=== PATIENT | male | born 1940 | race Caucasian/White ===

== ENCOUNTER 2017-07-01 00:16 | Inpatient (IN) | payer MEDICARE ==
[2017-07-01] MEDS ORDERED: NITROGLYCERIN/D5W 50 MG/250 ML RTUINJ IV PRN (00:37)
[2017-07-01] MEDS ORDERED: FUROSEMIDE INJ/PF 20 MG/2 ML SDV IV ONE ×2 (00:37→10:00)
--- NOTE | 2017-07-01 00:38 | ER Document Report ---
ED General - General Stated Complaint: DIFFICULTY BREATHING Time Seen by Provider: 07/01/17 00:36 Notes: Patient is a 76-year-old male presents with complaint of difficulty breathing. He says he has limited difficulty breathing last night after drinking a few beers. For some and drinking a long time. He said it went away. Said also tonight he woke up with severe difficulty breathing. Was diaphoretic and sweating. He denies ever having any chest pain. When paramedics arrived he had rales throughout and was diaphoretic. They placed Nitropaste on him and place him on CPAP is already feeling much improved. He denies any recent infections or fevers. He is a former smoker. Denies any known history of coronary disease. Patient does not see a doctor and does not take medications. Past Medical History - Social History Smoking Status: Former Smoker Frequency of alcohol use: Occasional Drug Abuse: None Family History: Reviewed & Not Pertinent Review of Systems - Review of Systems Notes: My Normal Review Basic REVIEW OF SYSTEMS: CONSTITUTIONAL : Denies fever, chills, or sweats. Denies recent illness. EENT: Denies eye, ear, throat, or mouth pain or symptoms. Denies nasal or sinus congestion. CARDIOVASCULAR: Denies chest pain. RESPIRATORY: Difficulty breathing GASTROINTESTINAL: Denies abdominal pain. Denies nausea, vomiting, or diarrhea. Denies constipation. Last BM: MUSCULOSKELETAL: Denies neck or back pain or joint pain or swelling. SKIN: Denies rash or skin lesions. NEUROLOGICAL: Denies altered mental status or loss of consciousness. Denies headache. Denies weakness or paralysis or loss of use of either side. Denies problems with gait or speech. Denies sensory or motor loss. ALL OTHER SYSTEMS REVIEWED AND NEGATIVE. Physical Exam - Vital signs Vitals: Pulse Resp BP Pulse Ox 116 H 40 H 175/119 H 100 07/01/17 00:16 07/01/17 00:16 07/01/17 00:16 07/01/17 00:16 - Notes Notes: General Appearance: Well nourished, alert, cooperative, mild to moderate acute distress, no obvious discomfort. Vitals: reviewed, See vital signs table. Head: no swelling or tenderness to the head Eyes: PERRL, EOMI, Conjuctiva clear Mouth: No decreasd moisture Neck: Supple, no neck tenderness, No thyromegaly Lungs: No wheezing, scattered rales, No rhonci, No accessory muscle use, good air exchange bilaterally. Heart: Tachycardic rate, Regular rythm, No murmur, no rub Abdomen: Normal BS, soft, No rigidity, No abdominal tenderness, No guarding, no rebound, no abdominal masses, no organomegaly Extremities: strength 5/5 in all extremities, good pulses in all extremities, no swelling or tenderness in the extremities, no edema. Skin: warm, dry, appropriate color, no rash Neuro: speech clear, oriented x 3, normal affect, responds appropriately to questions. Course - Re-evaluation Re-evalutation: 07/01/17 05:37 Patient's breathing is much improved now that his blood pressure is improved. Suspect the he had flushed department edema could have had hypertensive urgency with which could cardiac strain which probably led to a slight troponin leak. His troponins have remained in the indeterminate range. He denies any chest pain ever. He looks and feels much improved. I have spoken with the hospitalist who agrees to admit the patient. Dictation of this chart was performed using voice recognition software; therefore, there may be some unintended grammatical errors. - Vital Signs Vital signs: Temp Pulse Resp BP Pulse Ox 98.7 F 116 H 31 H 147/94 H 100 07/01/17 00:45 07/01/17 00:16 07/01/17 04:31 07/01/17 04:31 07/01/17 04:31 - Laboratory Result Diagrams: 07/01/17 00:20 07/01/17 00:20 Laboratory results interpreted by me: 07/01/17 07/01/17 07/01/17 00:20 00:20 00:20 WBC 14.3 H RDW 14.2 H Absolute Neutrophils 10.5 H Sodium 146.1 H Glucose 135 H Direct Bilirubin 0.5 H Creatine Kinase 276 H CK-MB (CK-2) 5.79 H NT-Pro-B Natriuret Pep 1620 H - EKG Interpretation by Me Additional EKG results interpreted by me: 07/01/17 00:38 EKG is reviewed and interpreted by me. EKG shows sinus tachycardia with rate of 111 bpm. Patient does have a left bundle branch block. No concerning ST segment changes in lieu of the left bundle branch block. TN interval is within normal range. QRS duration QTc intervals are prolonged. I do not have an old EKG for comparison. Discharge - Discharge Clinical Impression: Hypertensive emergency, Flash pulmonary edema Condition: Stable Disposition: ADMITTED INPATIENT Admitting Provider: Hospitalist Unit Admitted: [facility]
[2017-07-01 00:48] LABS: ABSOLUTE BASOPHILS # (AUTO) 0.1 10^3/uL (0.0-0.2); ABSOLUTE EOSINOPHILS # (AUTO) 0.2 10^3/uL (0.0-0.6); ABSOLUTE LYMPHOCYTES (AUTO) 2.5 10^3/uL (0.5-4.7); ABSOLUTE MONOCYTES (AUTO) 0.9 10^3/uL (0.1-1.4); ABSOLUTE NEUT (AUTO) 10.5 10^3/uL (1.7-8.2); BASOPHILS % (AUTO) 0.8 % (0-2); EOSINOPHILS % (AUTO) 1.6 % (0-6); HEMATOCRIT 43.9 % (37.9-51.0); HEMOGLOBIN 14.7 g/dL (13.5-17.0); HGB HCT DIFFERENCE 0.2; LYMPHOCYTES % (AUTO) 17.8 % (13-45); MEAN CORPUSCULAR HEMOGLOBIN 29.6 pg (27.0-33.4); MEAN CORPUSCULAR HGB CONC 33.4 g/dL (32.0-36.0); MEAN CORPUSCULAR VOLUME 89 fl (80-97); MONOCYTES % (AUTO) 6.1 % (3-13); RED BLOOD COUNT 4.94 10^6/uL (4.35-5.55); RED CELL DISTRIBUTION WIDTH 14.2 % (11.5-14.0); SEGMENTED NEUTROPHILS % (AUTO) 73.7 % (42-78); WHITE BLOOD COUNT 14.3 10^3/uL (4.0-10.5)
[2017-07-01 01:01] LABS: ALANINE AMINOTRANSFERASE 24 U/L (21-72); ALBUMIN 4.4 g/dL (3.5-5.0); ALKALINE PHOSPHATASE 88 U/L (38-126); ANION GAP 17 (5-19); ASPARTATE AMINO TRANSFERASE 32 U/L (17-59); BILIRUBIN,DIRECT 0.5 mg/dL (0.0-0.4); BILIRUBIN,TOTAL 0.8 mg/dL (0.2-1.3); BLOOD UREA NITROGEN 19 mg/dL (7-20); CALCIUM 9.1 mg/dL (8.4-10.2); CARBON DIOXIDE 24 mmol/L (22-30); CHLORIDE 105 mmol/L (98-107); CREATINE KINASE 276 U/L (55-170); CREATININE RESULT 0.99 mg/dL (0.52-1.25); GLUCOSE 135 mg/dL (75-110); POTASSIUM 3.7 mmol/L (3.6-5.0); SODIUM 146.1 mmol/L (137-145); TOTAL PROTEIN 7.9 g/dL (6.3-8.2)
[2017-07-01 01:03] LABS: CREATINE KINASE MB 5.79 ng/mL (<4.55)
[2017-07-01 01:14] LABS: TROPONIN I 0.048 ng/mL
--- NOTE | 2017-07-01 01:23 | RADIOLOGY REPORT (SQ) ---
EXAM DESCRIPTION: CHEST SINGLE VIEW COMPLETED DATE/TIME: 07/01/2017 12:50 am REASON FOR STUDY: difficulty breathing COMPARISON: None. EXAM PARAMETERS: NUMBER OF VIEWS: One view. TECHNIQUE: Single frontal radiographic view of the chest acquired. RADIATION DOSE: NA LIMITATIONS: None. FINDINGS: LUNGS AND PLEURA: Moderate interstitial markings including prominent septal lines. Small airspace patchiness of the left lower lobe. MEDIASTINUM AND HILAR STRUCTURES: No masses. Contour normal. HEART AND VASCULAR STRUCTURES: Mild enlargement of the cardiac silhouette. Atherosclerosis. BONES: No acute findings. HARDWARE: None in the chest. OTHER: No other significant finding. IMPRESSION: Moderate interstitial markings and small airspace patchiness of the left lower lobe. Di fferential diagnosis includes pulmonary edema, pneumonia, and/or chronic interstitial lung disease. TECHNICAL DOCUMENTATION: JOB ID: [id number]
[2017-07-01] MEDS ORDERED: NITROGLYCERIN 0.4 MG/TAB 25 TAB/BOTTLE SL PRN (05:01)
[2017-07-01] MEDS ORDERED: MORPHINE SULFATE 10 MG/ML INJ IV PRN (05:01)
[2017-07-01] MEDS ORDERED: HYDRALAZINE HCL INJ/PF 20 MG/1 ML SDV IV PRN (05:04)
[2017-07-01] MEDS ORDERED: POTASSIUM CHLORIDE 10 MEQ TABLET.SA PO ONE ×2 (05:06→09:00)
[2017-07-01] MEDS ORDERED: ATORVASTATIN CALCIUM 80 MG TABLET PO SCH (05:15)
[2017-07-01] MEDS ORDERED: LORAZEPAM 1 MG TABLET PO PRN (06:08)
--- NOTE | 2017-07-01 06:08 | PDOC H&P ---
History of Present Illness Admission Date/PCP: 07/01/17 05:01 Patient complains of: Shortness of breath History of Present Illness: VALERIA ROGERS is a 76 year old male with a past medical history of hypertension, noncompliance, tobacco, anxiety and a self-described short temper presents after the abrupt onset of severe shortness of breath and nonproductive cough. Denying fever chills, chest pain nausea and vomiting. EMS reports blood pressure 190/120. He receives nitroglycerin and transported to the emergency room where he was found to be in respiratory distress and placed on BiPAP, chest x-ray suggests pulmonary edema. IV nitroglycerin and Lasix initiated and he is referred to the hospitalist for admission. Patient denies previous episode though admits exceptional anxiety and insomnia unimproved by several beers and 6 BC powders. Past Medical History Cardiac Medical History: Reports: None, Hypertension Pulmonary Medical History: Reports: None EENT Medical History: Reports: None Neurological Medical History: Reports: None Psychiatric Medical History: Reports: Alcohol Dependency, General Anxiety Disorder, Tobacco Dependency Social History Information Source: Patient, [facility] Records Lives with: Family Smoking Status: Former Smoker Frequency of Alcohol Use: Heavy Drugs: None - Advance Directive Resuscitation Status: Full Code Family History Family History: COPD Parental Family History Reviewed: Yes Children Family History Reviewed: Yes Sibling(s) Family History Reviewed.: Yes Review of Systems Constitutional: ABSENT: anorexia, chills, fatigue, fever(s), headache(s), night sweats, weight gain, weight loss Eyes: ABSENT: visual disturbances Ears: ABSENT: hearing changes Cardiovascular: ABSENT: chest pain, dyspnea on exertion, edema, orthropnea, palpitations Respiratory: ABSENT: cough, hemoptysis Gastrointestinal: ABSENT: abdominal pain, constipation, diarrhea, hematemesis, hematochezia, nausea, vomiting Genitourinary: ABSENT: dysuria, hematuria Musculoskeletal: ABSENT: joint swelling Integumentary: ABSENT: rash, wounds Neurological: ABSENT: abnormal gait, abnormal speech, confusion, dizziness, focal weakness, syncope Psychiatric: PRESENT: anxiety. ABSENT: depression, homidical ideation, suicidal ideation Endocrine: ABSENT: cold intolerance, heat intolerance, polydipsia, polyuria Hematologic/Lymphatic: ABSENT: easy bleeding, easy bruising Physical Exam Vital Signs: Temp Pulse Resp BP Pulse Ox 98.7 F 116 H 25 H 128/70 H 99 07/01/17 00:45 07/01/17 00:16 07/01/17 05:31 07/01/17 05:31 07/01/17 05:31 General appearance: PRESENT: cooperative, mild distress, well-developed, well- nourished Head exam: PRESENT: atraumatic, normocephalic Eye exam: PRESENT: conjunctiva pink, EOMI, PERRLA. ABSENT: scleral icterus Ear exam: PRESENT: normal external ear exam Mouth exam: PRESENT: moist, tongue midline Neck exam: ABSENT: carotid bruit, JVD, lymphadenopathy, thyromegaly Respiratory exam: PRESENT: accessory muscle use, crackles, prolonged expiratory phas, symmetrical, tachypnea Cardiovascular exam: PRESENT: RRR. ABSENT: diastolic murmur, rubs, systolic murmur Pulses: PRESENT: normal dorsalis pedis pul Vascular exam: PRESENT: normal capillary refill GI/Abdominal exam: PRESENT: normal bowel sounds, soft. ABSENT: distended, guarding, mass, organolmegaly, rebound, tenderness Rectal exam: PRESENT: deferred Extremities exam: PRESENT: full ROM. ABSENT: calf tenderness, clubbing, pedal edema Neurological exam: PRESENT: alert, awake, oriented to person, oriented to place , oriented to time, oriented to situation, CN II-XII grossly intact. ABSENT: motor sensory deficit Psychiatric exam: PRESENT: anxious, normal mood. ABSENT: homicidal ideation, suicidal ideation Skin exam: PRESENT: dry, intact, warm. ABSENT: cyanosis, rash Results Impressions: Chest X-Ray 07/01/17 00:37 IMPRESSION: Moderate interstitial markings and small airspace patchiness of the left lower lobe. Differential diagnosis includes pulmonary edema, pneumonia , and/or chronic interstitial lung disease. Assessment & Plan - Diagnosis (1) Flash pulmonary edema Is this a current diagnosis for this admission?: Yes Plan: Secondary to hypertensive emergency. Complicated by uncontrolled anxiety, excessive caffeine and alcohol. Supplemental oxygen IV nitroglycerin and Lasix. Education to limit excessive Goody powder and alcohol (2) Anxiety Is this a current diagnosis for this admission?: Yes Plan: Trial trazodone as needed Ativan (3) Hypertensive emergency Is this a current diagnosis for this admission?: Yes Plan: IV nitroglycerin and Lasix initiated will trial atenolol. (4) Tobacco abuse Is this a current diagnosis for this admission?: Yes Plan: Tobacco Dependence patient received tobacco cessation counseling and offered nicotine replacement options (5) Alcohol dependence Is this a current diagnosis for this admission?: Yes Plan: Challenging to quantify, p.o. thiamine as needed Ativan - Time Time Spent: 50 to 70 Minutes
[2017-07-01] MEDS ORDERED: TRAZODONE HCL 50 MG TABLET PO SCH (07:00)
[2017-07-01 07:38] LABS: CHOLESTEROL 147.76 mg/dL (0-200); CREATINE KINASE 207 U/L (55-170); Direct HDL 44 mg/dL (>40); TRIGLYCERIDES 59 mg/dL (<150)
[2017-07-01 07:49] LABS: DIRECT LDL 90 mg/dL (<100)
[2017-07-01 07:50] LABS: CREATINE KINASE MB 4.98 ng/mL (<4.55); TROPONIN I 0.086 ng/mL
--- NOTE | 2017-07-01 08:05 | EKG REPORT ---
SEVERITY:- ABNORMAL ECG - SINUS TACHYCARDIA LEFT BUNDLE BRANCH BLOCK : Confirmed by: Juliocesar Lynch 01-Jul-2017 08:05:24
[2017-07-01] MEDS: HEPARIN SOD (PORCINE) 5,000 UNIT/ML 1 ML SYRINGE SUBCUT SCH ×3 (08:39→21:06)
[2017-07-01 09:33] LABS: ANION GAP 13 (5-19)
[2017-07-01] MEDS: LISINOPRIL 10 MG TABLET PO SCH ×2 (10:07→21:06)
[2017-07-01] MEDS: THIAMINE HCL 100 MG TABLET PO SCH (10:08)
[2017-07-01] MEDS: DOCUSATE SODIUM 100 MG CAPSULE PO SCH ×2 (10:11→18:56)
[2017-07-01 10:18] LABS: BLOOD UREA NITROGEN 19 mg/dL (7-20); CALCIUM 9.3 mg/dL (8.4-10.2); CARBON DIOXIDE 27 mmol/L (22-30); CHLORIDE 103 mmol/L (98-107); CREATININE RESULT 0.89 mg/dL (0.52-1.25); GLUCOSE 103 mg/dL (75-110); SODIUM 142.8 mmol/L (137-145)
[2017-07-01 10:32] LABS: POTASSIUM 4.8 mmol/L (3.6-5.0)
--- NOTE | 2017-07-01 15:45 | PSYCHOLOGICAL NOTE ---
Psych Note - Psych Note Psych Note: Patient is a 76 year old male who presented to the ED this morning for continued SOB/difficulty breathing over the past few days. He was subsequently admitted for flash pulmonary edema, anxiety, HTN emergency, tobacco use, and alcohol dependence. A psychiatric consult was ordered to address aron. Patient stated he had 3 cans of beer the other night prior to his SOB. He stated he had SOB other times when he was not drinking. He stated he drinks a glass of wine or a couple cold beers here and there, not everyday, and that he has been doing so since age 25. He acknowledged he used to drink more when he was younger. He noted MH history after a divorce he went through and then when his then second sent him to [facility] for drinking and smoking cigarettes. He reported he has not smoked cigarettes since 2002 with the exception of a cigar "occasionally." He minimized the problems (HTN, CHF) listed on dry erase board. He acknowledged he goes 18-20 without rest. He also admitted to not eating healthy and taking in a lot of salt. He said he can try to rest more and eat less salt. He identified in September 1988 he was diagnosed with TB and on mediations for 9 months. He stated he has had wax build up in his ears, has had them cleaned twice, and asked if it could be done again. He identified a son, daughter, and girlfriend who live locally as supports. Patient was oriented x4 (knew the month, date, year, current location). Mood was hypomanic with congruent affect AEB rapid speech, stumbling over words frequently, and upbeat presentation. He denied SI/HI. He did not appear to be responding to internal stimuli AEB fair eye contact, answering questions appropriately when addressed, and carrying on dialogue conversation. Thought processes were somewhat tangential but he was easily redirected back to topic, as well as concrete versus abstract (answered 2/3 questions that address abstract reasoning wrong). Conversational speech was rapid in rate. Intellectual abilities are estimated to be average. Insight, judgment and impulse control are fair AEB reasoning abilities even thought he presented hypomanic. Attending nurse stated patient was able to lay down and sleep. This clinician overheard patient on the phone having linear and appropriate conversation about that person coming to stay with him in the hospital overnight. Diagnosis: Hypomania 291.9 (F10.99) Unspecified Alcohol Related Disorder R/O 799.59 (R41.9) Unspecified Neuro-cognitive Disorder Impression/Plan: Patient's presentation appears hypomanic given rapid rate of speech, stumbling over words, somewhat tangential thinking, and his report that he goes 18-20 hours without resting and on the go. Medication regimen was suggested. Also request Head CT given patient's age and reported use of alcohol since age 25. Consult[address] Beckman regarding the management and care of patient. Attending hospitalists aware of recommendations.
[2017-07-01 15:46] LABS: CREATINE KINASE MB 4.56 ng/mL (<4.55); TROPONIN I 0.066 ng/mL
--- NOTE | 2017-07-01 15:57 | PDOC PROGRESS REPORT ---
Subjective Progress Note for:: 07/01/17 Subjective:: Patient seen earlier today on morning rounds. He reports he is feeling significantly better. He reports that he drinks every several months approximately 4 beers. He reports these were 4- 24 ounce beers a couple of days ago. Patient denies chest pain, shortness of breath, abdominal pain, nausea, vomiting , fevers, chills, diarrhea, constipation, headache, new onset weakness. Physical Exam Vital Signs: Temp Pulse Resp BP Pulse Ox 98.7 F 83 22 H 126/62 H 97 07/01/17 13:41 07/01/17 13:41 07/01/17 13:41 07/01/17 13:41 07/01/17 13:41 Intake & Output 06/30/17 07/01/17 07/02/17 06:59 06:59 06:59 Intake Total 210 Output Total 140 Balance 70 Exam: General: Awake alert and orientedx3, no acute respiratory distress HEENT: AT/NC, PERRL, EOMI, oropharynx is moist, pink, no scleral icterus, no conjunctival injection Neck: + JVD, trachea midline Chest: Bilateral bibasilar rales CV: Regular rate and rhythm, normal S1 and S2, no murmur, rub, or gallop Abdomen: Soft, nontender to palpation, nondistended, active bowel sounds; no rebound, rigidity, or guarding Extremities: No cyanosis, clubbing or edema Neuro: Cranial nerves II through XII are grossly intact without focal deficits; awake alert and oriented x3 Psych: Increased psychomotor activity, pressured speech Results Impressions: Chest X-Ray 07/01/17 00:37 IMPRESSION: Moderate interstitial markings and small airspace patchiness of the left lower lobe. Differential diagnosis includes pulmonary edema, pneumonia , and/or chronic interstitial lung disease. Assessment & Plan - Diagnosis (1) Hypertensive emergency Is this a current diagnosis for this admission?: Yes Plan: Initiate oral antihypertensives and wean nitroglycerin drip off. Start patient on lisinopril 20 mg p.o. twice daily. Give additional dose of Lasix. Hold on beta-blockers in the acute phase of congestive heart failure. (2) Acute diastolic (congestive) heart failure Is this a current diagnosis for this admission?: Yes Plan: Patient likely suffering at least acutely, from acute diastolic heart failure due to his hypertensive emergency. Place patient on lisinopril and obtain an echocardiogram. (3) Flash pulmonary edema Is this a current diagnosis for this admission?: Yes Plan: Continue IV Lasix (4) Tobacco abuse Is this a current diagnosis for this admission?: Yes Plan: Patient reports using tobacco daily as chewing tobacco. He is encouraged to stop (5) Hypomania Is this a current diagnosis for this admission?: Yes Plan: Have consulted psychology. Have check TSH, which is normal. Will obtain a head CT. Concerned that this is alcohol or other substance related aron. (6) Acute hypoxemic respiratory failure Is this a current diagnosis for this admission?: Yes Plan: Secondary to pulmonary edema. Continue oxygen to maintain saturation greater than 93 - Time Time Spent with patient: 35 or more minutes Medications reviewed and adjusted accordingly: Yes Anticipated discharge: Home Within: within 48 hours
--- NOTE | 2017-07-01 15:59 | RADIOLOGY REPORT (SQ) ---
EXAM DESCRIPTION: CT HEAD WITHOUT COMPLETED DATE/TIME: 07/01/2017 3:52 pm REASON FOR STUDY: hypomania R00.0 TACHYCARDIA, UNSPECIFIED T43.621A POISONING BY AMPHETAMINES, ACC IDENTAL (UNINTENTIONA COMPARISON: None. TECHNIQUE: Axial images acquired through the brain without intravenous contrast. Images reviewed wi th bone, brain and subdural windows. Images stored on PACS. All CT scanners at this facility use dose modulation, iterative reconstruction, and/or weight based d osing when appropriate to reduce radiation dose to as low as reasonably achievable (ALARA). [facility]: Dose Right [facility]: CareDose [facility]: Dose Right [facility]: Teradose 4D [facility]: [employer] RADIATION DOSE: Up-to-date CT equipment and radiation dose reduction techniques were employed. CTDIv ol: 49.0 mGy. DLP: 1468 mGy-cm.mGy. LIMITATIONS: Patient motion. FINDINGS: VENTRICLES: Prominent. CEREBRUM: No masses. No hemorrhage. No midline shift. Areas of low density in the white matter mos t likely due to chronic micro-vascular ischemic change. No evidence for acute infarction. CEREBELLUM: No masses. No hemorrhage. No alteration of density. No evidence for acute infarction. EXTRAAXIAL SPACES: Age-related involutional change. No fluid collections. No masses. ORBITS AND GLOBE: No intra- or extraconal masses. Normal contour of globe without masses. CALVARIUM: No fracture. PARANASAL SINUSES: No fluid or mucosal thickening. SOFT TISSUES: No mass or hematoma. OTHER: No other significant finding. IMPRESSION: CHRONIC CHANGES OF ATROPHY AND MICROVASCULAR ISCHEMIA. NO ACUTE PROCESS. TECHNICAL DOCUMENTATION: JOB ID: [id number] Quality ID # [id number]: Final reports with documentation of one or more dose reduction techniques (e.g., Au tomated exposure control, adjustment of the mA and/or kV according to patient size, use of iterative reconstruction technique) 2010 [employer]- All Rights Reserved
[2017-07-01 17:48] LABS: CREATINE KINASE MB 4.36 ng/mL (<4.55); TROPONIN I 0.065 ng/mL
[2017-07-01] MEDS ORDERED: LORAZEPAM INJ 2 MG/1 ML VIAL IV PRN (18:50)
[2017-07-01 19:24] LABS: URINE BARBITURATES SCREEN NEGATIVE; URINE METHADONE SCREEN NEGATIVE; URINE OPIATES LOW NEGATIVE; URINE PHENCYCLIDINE SCREEN NEGATIVE
[2017-07-01] MEDS ORDERED: TEMAZEPAM 15 MG CAPSULE PO ONE (20:00)
[2017-07-01] MEDS ORDERED: DIVALPROEX SODIUM 500 MG TAB.SR.24H PO SCH (22:00)
[2017-07-02 05:27] LABS: ANION GAP 9 (5-19); BLOOD UREA NITROGEN 19 mg/dL (7-20); CALCIUM 9.8 mg/dL (8.4-10.2); CARBON DIOXIDE 30 mmol/L (22-30); CHLORIDE 103 mmol/L (98-107); CHOLESTEROL 157.57 mg/dL (0-200); CREATINE KINASE 167 U/L (55-170); CREATININE RESULT 0.97 mg/dL (0.52-1.25); Direct HDL 38 mg/dL (>40); GLUCOSE 95 mg/dL (75-110); POTASSIUM 4.4 mmol/L (3.6-5.0); SODIUM 142.3 mmol/L (137-145); TRIGLYCERIDES 151 mg/dL (<150)
[2017-07-02 05:38] LABS: DIRECT LDL 88 mg/dL (<100)
[2017-07-02] MEDS: HEPARIN SOD (PORCINE) 5,000 UNIT/ML 1 ML SYRINGE SUBCUT SCH (05:38)
[2017-07-02 05:39] LABS: VLDL CHOLESTEROL 30.2 mg/dL (10-31)
--- NOTE | 2017-07-02 07:59 | PSYCHOLOGICAL NOTE ---
Psych Note - Psych Note Psych Note: Reviewed Head CT dated 07/01/2017. Findings: Prominent Ventricles Areas of low density in the white matter most likely due to chronic micro- vascular ischemic change Age related involutional change associated with extra axial spaces Impression: Chronic changes of atrophy and micro-vascular ischemia. This language suggests neuro-degenerative processes as seen in dementia. 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 Recommendation for follow up with neurology.
[2017-07-02] MEDS: THIAMINE HCL 100 MG TABLET PO SCH (09:14)
[2017-07-02] MEDS: LISINOPRIL 10 MG TABLET PO SCH (09:14)
[2017-07-02] MEDS: DOCUSATE SODIUM 100 MG CAPSULE PO SCH (09:21)
[2017-07-02 10:28] VITALS: BP 86/50
--- NOTE | 2017-07-02 18:15 | PDOC DISCHARGE SUMMARY ---
General - Admit/Disc Date/PCP Admission Date/Primary Care Provider: 07/01/17 11:06 Discharge Date: 07/02/17 - Discharge Diagnosis (1) Hypertensive emergency Is this a current diagnosis for this admission?: Yes (2) Acute diastolic (congestive) heart failure Is this a current diagnosis for this admission?: Yes (3) Flash pulmonary edema Is this a current diagnosis for this admission?: Yes (4) Tobacco abuse Is this a current diagnosis for this admission?: Yes (5) Hypomania Is this a current diagnosis for this admission?: Yes (6) Acute hypoxemic respiratory failure Is this a current diagnosis for this admission?: Yes - Additional Information Resuscitation Status: Full Code Discharge Diet: Cardiac Discharge Activity: Activity As Tolerated, Balance Activity w/Rest, Weigh Daily Home Medications: Aspirin [Aspirin 81 mg Chewable Tablet] 81 mg PO DAILY #1 pkg 07/02/17 Divalproex Sodium [Depakote ER 500 mg Tab.sr] 500 mg PO QHS #30 tab.sr.24h 07/02 Lisinopril 20 mg PO BID #60 tablet 07/02/17 Temazepam [Restoril 15 mg Capsule] 15 mg PO QHS #10 capsule 07/02/17 Thiamine HCl [Thiamine 100 mg Tablet] 100 mg PO DAILY #30 tablet 07/02/17 History of Present Illness History of Present Illness: VALERIA ROGERS is a 76 year old male with a past medical history of hypertension, noncompliance, tobacco, anxiety and a self-described short temper presents after the abrupt onset of severe shortness of breath and nonproductive cough. Denying fever chills, chest pain nausea and vomiting. EMS reports blood pressure 190/120. He receives nitroglycerin and transported to the emergency room where he was found to be in respiratory distress and placed on BiPAP, chest x-ray suggests pulmonary edema. IV nitroglycerin and Lasix initiated and he is referred to the hospitalist for admission. Patient denies previous episode though admits exceptional anxiety and insomnia unimproved by several beers and 6 BC powders. Hospital Course Hospital Course: Patient was admitted and initally required a nitroglycerin ggt for BP control. Patient was started on IV Lasix with improvement of his pulmonary edema. Patient was transitioned to lisinopril and required no further Lasix. Patient was given heart failure and hypertension education. Patient admitted to prior to admission consuming an excessive amount of salt. Patient was given dietary education. Patient was noted to be mildly hypomanic and psychology consultation was placed and they felt that this was likely secondary to possible dementia. Patient was given Depakote and Restoril with good effect for sleep. Regrettably, cardiology is currently unavailable and echocardiogram was deferred to outpatient status. Patient was felt to likely have some diastolic heart failure due to hypertensive emergency leading to flash pulmonary edema. He is advised to follow-up with cardiology and an appointment has been made for him for primary care physician as he has not been to a physician since 2002. Physical Exam Vital Signs: Temp Pulse Resp BP Pulse Ox 98.7 F 78 20 86/50 L 97 07/02/17 10:24 07/02/17 10:24 07/02/17 10:24 07/02/17 10:24 07/02/17 10:24 Intake & Output 07/01/17 07/02/17 07/03/17 06:59 06:59 06:59 Intake Total 1092 118 Output Total 465 Balance 627 118 Weight 83.3 kg Exam: General: Awake alert and orientedx3, no acute respiratory distress HEENT: AT/NC, PERRL, EOMI, oropharynx is moist, pink, no scleral icterus, no conjunctival injection Neck: no JVD, trachea midline Chest: Bilateral bibasilar rales CV: Regular rate and rhythm, normal S1 and S2, no murmur, rub, or gallop Abdomen: Soft, nontender to palpation, nondistended, active bowel sounds; no rebound, rigidity, or guarding Extremities: No cyanosis, clubbing or edema Neuro: Cranial nerves II through XII are grossly intact without focal deficits; awake alert and oriented x3 Psych: mildly anxious in appearance Results Laboratory Results: 07/02/17 04:39 07/02/17 04:39 Sodium 142.3 Potassium 4.4 Chloride 103 Carbon Dioxide 30 Anion Gap 9 BUN 19 Creatinine 0.97 Est GFR ( Amer) > 60 Est GFR (Non-Af Amer) > 60 Glucose 95 Calcium 9.8 Triglycerides 151 H Cholesterol 157.57 LDL Cholesterol Direct 88 VLDL Cholesterol 30.2 HDL Cholesterol 38 L 07/01/17 07/01/17 07/02/17 13:47 17:10 04:39 Creatine Kinase 167 CK-MB (CK-2) 4.56 H 4.36 Troponin I 0.066 0.065 Impressions: Head CT 07/01/17 00:00 IMPRESSION: CHRONIC CHANGES OF ATROPHY AND MICROVASCULAR ISCHEMIA. NO ACUTE PROCESS. Chest X-Ray 07/01/17 00:37 IMPRESSION: Moderate interstitial markings and small airspace patchiness of the left lower lobe. Differential diagnosis includes pulmonary edema, pneumonia , and/or chronic interstitial lung disease. Qualifiers PATEINT BEING DISCHARGED WITH ANY OF THE FOLLOWING DIAGNOSIS?: Heart Failure HF Pt being discharged on ACEI for LVEF less than 40%?: Yes HF Pt being discharged on ARBS for LVEF less than 40%?: No Reason(s) for not prescribing ARBS:: Not indicated - on kirk HF Pt with Afib discharged with Warfarin?: No Reason(s) for not prescribing Warfarin:: Not indicated - no a-fib HF Pt discharged on evidence-based Beta Tushar:: No Reason(s) for not prescribing evidence-based Beta Tushar:: Not indicated - not true heart failure Plan Time Spent: Less than 30 Minutes
[2017-07-02] MEDS ORDERED: TEMAZEPAM 15 MG CAPSULE PO SCH (22:00)
== END 2017-07-02 13:00 | disposition home or self-care (01) | DRG 304 ==
LOC: ER 00:16 → EH 05:01 → INTOOBSV 05:29 → EH 05:29 → UNDOADMOB 05:29 → 3W 06:38 → OBSVTOIN 11:06
PROVIDERS: ADMIT Internal Medicine; ATTEND Internal Medicine
PROC: 5A09357 Assistance with Respiratory Ventilation, Less than 24 Consecutive Hours, Continuous Positive Airway Pressure (ICD-10-PCS; principal; 2017-07-01)
DX: I16.1 Hypertensive emergency (principal); I50.31 Acute diastolic (congestive) heart failure; J96.01 Acute respiratory failure with hypoxia; F10.20 Alcohol dependence, uncomplicated; F41.1 Generalized anxiety disorder; F30.8 Other manic episodes; I11.0 Hypertensive heart disease with heart failure; Z91.19 Patient's noncompliance with other medical treatment and regimen; Z87.891 Personal history of nicotine dependence
CPT/HCPCS: 36415; 70450; 71010; 80048; 80053; 80061; 80307; 82550; 82553; 83880; 84443; 84484; 85025; 93005; 93010; 94660; 96365; 96366; 96375; 99285; G0378; J1644; J1940; J3490

== ENCOUNTER 2018-01-26 05:00 | Emergency (ER) | payer MEDICARE ==
[2018-01-26 05:45] LABS: ABSOLUTE BASOPHILS # (AUTO) 0.1 10^3/uL (0.0-0.2); ABSOLUTE EOSINOPHILS # (AUTO) 0.1 10^3/uL (0.0-0.6); ABSOLUTE LYMPHOCYTES (AUTO) 1.5 10^3/uL (0.5-4.7); ABSOLUTE MONOCYTES (AUTO) 0.8 10^3/uL (0.1-1.4); ABSOLUTE NEUT (AUTO) 7.9 10^3/uL (1.7-8.2); EOSINOPHILS % (AUTO) 1.2 % (0-6); HEMATOCRIT 39.7 % (37.9-51.0); LYMPHOCYTES % (AUTO) 14.7 % (13-45); MEAN CORPUSCULAR HEMOGLOBIN 27.9 pg (27.0-33.4); MEAN CORPUSCULAR HGB CONC 32.8 g/dL (32.0-36.0); MEAN CORPUSCULAR VOLUME 85 fl (80-97); MONOCYTES % (AUTO) 8.1 % (3-13); PLATELET COUNT 304 10^3/uL (150-450); RED BLOOD COUNT 4.66 10^6/uL (4.35-5.55); RED CELL DISTRIBUTION WIDTH 16.8 % (11.5-14.0); TOTAL CELLS COUNTED % (AUTO) 100 %; WHITE BLOOD COUNT 10.5 10^3/uL (4.0-10.5)
--- NOTE | 2018-01-26 05:57 | RADIOLOGY REPORT (SQ) ---
EXAM DESCRIPTION: CHEST SINGLE VIEW CLINICAL HISTORY: 77 years Male, sob COMPARISON: 9.15.17 NUMBER OF VIEWS/TECHNIQUE: 1/AP LIMITATIONS: None. FINDINGS: Mixed small airspace and moderate interstitial opacities, small blunting-effusion of bilateral costophrenic angles, and mild cardiac enlargement. IMPRESSION: Mild CHF pattern. Differential diagnosis includes multifocal pneumonia and/or chronic interstitial lung disease.
[2018-01-26] MEDS ORDERED: IPRATROPIUM/ALBUTEROL 0.5-2.5 MG/3 ML AMPUL NEB ONE (06:02)
--- NOTE | 2018-01-26 06:06 | ER Document Report ---
ED Medical Screen (RME) - General Chief Complaint: Shortness Of Breath Stated Complaint: SHORTNESS OF BREATH Time Seen by Provider: 01/26/18 05:57 TRAVEL OUTSIDE OF THE [place] IN LAST 30 DAYS: No - HPI Notes: 01/26/18 06:04 Patient is a 77-year-old male with a history of congestive heart failure who presents to the ED complaining of shortness of breath intermittently over the last 3 days primarily when he is laying down or walking. Patient states that he does not take any medicines for any other medical conditions. He has not had any chest pain. He is eating and drinking without difficulties. He is urinating normally and having normal bowel movements. Patient has not noticed any obvious lower extremity swelling or edema. He denies any drug allergies. Patient denies any pulmonary medical history otherwise. Denies any headache, fever, neck pain, URI, sore throat, chest pain, palpitations, syncope, cough, abdominal pain, nausea/vomiting/diarrhea, urinary retention, dysuria, hematuria , or rash. I have treated and performed a rapid initial assessment of this patient. A comprehensive ED assessment and evaluation of the patient, analysis of test results and completion of medical decision making process will be conducted by additional ED providers. PHYSICAL EXAMINATION: GENERAL: Well-appearing, well-nourished and in no acute distress. A&Ox4. Answers questions appropriately. LUNGS: Scant wheeze lower lobes b/l. mild dec air movement. no retractions HEART: Regular rate and rhythm without murmurs, rubs, gallops. Extremities: No cyanosis, clubbing, or edema b/l. NEUROLOGICAL: Normal speech PSYCH: Normal mood, normal affect. - Related Data Allergies/Adverse Reactions: No Known Allergies Allergy (Unverified 07/01/17 06:09) Past Medical History - Social History Chew tobacco use (# tins/day): No Frequency of alcohol use: None Drug Abuse: None - Past Medical History Cardiac Medical History: Reports: Hx Hypertension - noncompliant Renal/ Medical History: Denies: Hx Peritoneal Dialysis Physical Exam - Vital signs Vitals: Resp 30 H 01/26/18 05:27 Course - Vital Signs Vital signs: Temp Pulse Resp BP Pulse Ox 30 H 01/26/18 05:27 - Laboratory Result Diagrams: 01/26/18 05:25 01/26/18 05:25 Laboratory results interpreted by me: 04/12/18 05:25 Hgb 13.0 L RDW 16.8 H
[2018-01-26 06:09] LABS: ALANINE AMINOTRANSFERASE 19 U/L (21-72); ALBUMIN 4.1 g/dL (3.5-5.0); ALKALINE PHOSPHATASE 70 U/L (38-126); ANION GAP 11 (5-19); ASPARTATE AMINO TRANSFERASE 19 U/L (17-59); BILIRUBIN,DIRECT 0.3 mg/dL (0.0-0.4); BILIRUBIN,TOTAL 1.5 mg/dL (0.2-1.3); BLOOD UREA NITROGEN 15 mg/dL (7-20); CALCIUM 9.1 mg/dL (8.4-10.2); CARBON DIOXIDE 30 mmol/L (22-30); CHLORIDE 103 mmol/L (98-107); GLUCOSE 102 mg/dL (75-110); SODIUM 143.6 mmol/L (137-145); TOTAL PROTEIN 7.1 g/dL (6.3-8.2)
[2018-01-26] MEDS ORDERED: FUROSEMIDE 20 MG TABLET PO ONE (06:36)
[2018-01-26] MEDS ORDERED: FUROSEMIDE INJ/PF 20 MG/2 ML SDV IV ONE (06:37)
--- NOTE | 2018-01-26 07:20 | ER Document Report ---
ED General - General Chief Complaint: Shortness Of Breath Stated Complaint: SHORTNESS OF BREATH Time Seen by Provider: 01/26/18 05:57 Mode of Arrival: Ambulatory Information source: Patient Notes: 77-year-old male history of CHF who was not discharged home on any diuretics from previous visit presents with complaints of shortness of breath. Patient denies any fevers or chills notes it is worse at nighttime Patient denies any calf pain or swelling TRAVEL OUTSIDE OF THE [place] IN LAST 30 DAYS: No - HPI Onset: Other Onset/Duration: Persistent Quality of pain: No pain Severity: Mild Pain Level: Denies Associated symptoms: Nonproductive cough, Shortness of breath Exacerbated by: Supine, Walking Relieved by: Sitting, Standing Similar symptoms previously: Yes Recently seen / treated by doctor: Yes - Related Data Allergies/Adverse Reactions: No Known Allergies Allergy (Unverified 07/01/17 06:09) Past Medical History - Social History Smoking Status: Former Smoker Cigarette use (# per day): No Chew tobacco use (# tins/day): No Smoking Education Provided: No Drug Abuse: None Family History: COPD Patient has suicidal ideation: No Patient has homicidal ideation: No - Past Medical History Cardiac Medical History: Reports: Hx Hypertension - noncompliant Renal/ Medical History: Denies: Hx Peritoneal Dialysis Review of Systems - Review of Systems Notes: REVIEW OF SYSTEMS: CONSTITUTIONAL : Denies fever, chills, or sweats. Denies recent illness. EENT: Denies eye, ear, throat, or mouth pain or symptoms. Denies nasal or sinus congestion or discharge. Denies throat, tongue, or mouth swelling or difficulty swallowing. CARDIOVASCULAR: Denies chest pain. Denies palpitations or racing or irregular heart beat. Denies ankle edema. RESPIRATORY: Denies cough, cold, or chest congestion. Denies shortness of breath, difficulty breathing, or wheezing. GASTROINTESTINAL: Denies abdominal pain or distention. Denies nausea, vomiting , or diarrhea. Denies blood in vomitus, stools, or per rectum. Denies black, tarry stools. Denies constipation. GENITOURINARY: Denies difficulty urinating, painful urination, burning, frequency, blood in urine, or discharge. MUSCULOSKELETAL: Denies back or neck pain or stiffness. Denies joint pain or swelling. SKIN: Denies rash, lesions or sores. HEMATOLOGIC : Denies easy bruising or bleeding. LYMPHATIC: Denies swollen, enlarged glands. NEUROLOGICAL: Denies confusion or altered mental status. Denies passing out or loss of consciousness. Denies dizziness or lightheadedness. Denies headache. Denies weakness or paralysis or loss of use of either side. Denies problems with gait or speech. Denies sensory loss, numbness, or tingling. Denies seizures. PSYCHIATRIC: Denies anxiety or stress. Denies depression, suicidal ideation, or homicidal ideation. ALL OTHER SYSTEMS REVIEWED AND NEGATIVE. Dictation was performed using [employer] recognition software PHYSICAL EXAMINATION: GENERAL: Well-appearing, well-nourished and in no acute distress. HEAD: Atraumatic, normocephalic. EYES: Pupils equal round and reactive to light, extraocular movements intact, sclera anicteric, conjunctiva are normal. ENT: Nares patent, oropharynx clear without exudates. Moist mucous membranes. NECK: Normal range of motion, supple without lymphadenopathy LUNGS: Breath sounds clear to auscultation bilaterally and equal. No wheezes rales or rhonchi. HEART: Regular rate and rhythm without murmurs ABDOMEN: Soft, nontender, nondistended abdomen. No guarding, no rebound. No masses appreciated. Musculoskeletal: Normal range of motion, no pitting or edema. No cyanosis. NEUROLOGICAL: Cranial nerves grossly intact. Normal speech, normal gait. Normal sensory, motor exams PSYCH: Normal mood, normal affect. SKIN: Warm, Dry, normal turgor, no rashes or lesions noted. Physical Exam - Vital signs Vitals: Pulse Ox 97 01/26/18 05:12 Course - Re-evaluation Re-evalutation: 01/26/18 07:23 Patient has probable CHF exacerbation, Lasix and DuoNeb have been given x-rays consistent with congestive heart failure no white count no fevers patient's O2 sats are noted to be 97% on room air. BNP was elevated 01/26/18 08:19 Patient was ambulated he was satting 100% on room air throughout, he is in no distress, I do believe this is from congestive heart failure therefore I will place patient on Lasix After performing a Medical Screening Examination, I estimate there is LOW risk for RUPTURED ESOPHAGUS, PNEUMOTHORAX, PULMONARY EMBOLISM, ACUTE CORONARY SYNDROME, OR THORACIC AORTIC DISSECTION, thus I consider the discharge disposition reasonable. I have reevaluated this patient multiple times and no significant life threatening changes are noted. The patient and I have discussed the diagnosis and risks, and we agree with discharging home with close follow-up. We also discussed returning to the Emergency Department immediately if new or worsening symptoms occur. We have discussed the symptoms which are most concerning (e.g., bloody sputum, worsening pain or shortness of breath) that necessitate immediate return. - Vital Signs Vital signs: Temp Pulse Resp BP Pulse Ox 98.6 F 32 H 124/98 H 96 01/26/18 06:00 01/26/18 06:46 01/26/18 06:46 01/26/18 06:46 - Laboratory Result Diagrams: 01/26/18 05:25 01/26/18 05:25 Laboratory results interpreted by me: 01/26/18 01/26/18 01/26/18 05:25 05:25 05:25 Hgb 13.0 L RDW 16.8 H Total Bilirubin 1.5 H ALT 19 L NT-Pro-B Natriuret Pep 4740 H - Diagnostic Test Radiology reviewed: Image reviewed - 2 view chest xray consistant with, Reports reviewed - EKG Interpretation by Me EKG shows normal: Sinus rhythm, [place], Intervals, QRS Complexes Discharge - Discharge Clinical Impression: Acute diastolic (congestive) heart failure Condition: Stable Disposition: HOME, SELF-CARE Instructions: Congestive Heart Failure ([facility]) Additional Instructions: Please follow-up with your primary care physician regarding her congestive heart failure return immediately if symptoms are worsening or there are any other Prescriptions: Furosemide [Lasix 20 mg Tablet] 20 mg PO QAM #30 tablet
--- NOTE | 2018-01-26 07:43 | EKG REPORT ---
SEVERITY:- ABNORMAL ECG - SINUS RHYTHM LEFT BUNDLE BRANCH BLOCK : Confirmed by: Hakeem Escalante MD 26-Jan-2018 07:43:22
[2018-01-26 08:19] VITALS: BP 128/80
== END 2018-01-26 08:27 | disposition home or self-care (01) ==
LOC: ER 05:00
DX: I50.31 Acute diastolic (congestive) heart failure (principal); R06.02 Shortness of breath; R05 Cough; Z87.891 Personal history of nicotine dependence; I10 Essential (primary) hypertension
CPT/HCPCS: 93005; 94640; 99285; 96374; 36415; 85025; 80053; 84484; 83880; 71045; 93010; J1940; A9270; J7620